=== PATIENT | female | born 1960 | race Caucasian/White ===

== ENCOUNTER 2018-10-04 13:57 | Day surgery (SDC) | payer MEDICAID, OTHER ==
[2018-10-02 18:26] VITALS: BMI 25.6
[~2018-10-04] VITALS: Ht 154.9 cm; Wt 62.3 kg
[2018-10-04] VITALS (25 sets, daily range): BP systolic 133–173; BP diastolic 58–80; PULSE 60–78; RESP 10–17; Ht 154.9 cm; Wt 62.3 kg
[~2018-10-04 13:57] MED LIST: NALOXONE (0.4 MG/ML) INJ ONE; SEVOFLURANE 15 MIN ONE
[2018-10-04] MEDS ORDERED: CEFAZOLIN 2 GM/50 ML (PMX) 50 ML IVPB ONE (14:00)
[2018-10-04] MEDS ORDERED: LACTATED RINGER'S 1,000 ML IV* SCH (14:00)
--- NOTE | 2018-10-04 15:39 | PREAC ---
Date/Time of Note Date/Time of Note DATE: 10/04/18 TIME: 15:39 Anesthesia Eval and Record Evaluation Time Pre-Procedure Interview DATE: 10/04/18 TIME: 15:39 Age 58 Sex female NPO: 8 hrs Preoperative diagnosis Left thumb carpometacarpal arthritis, left carpal tunnel syndrome Planned procedure Left thumb carpometacarpal joint arthroplasty, trapeziectomy, ligament reconstruction using abductor pollicis longus tendon, left carpal tunnel release, endoscopic vs open Past Medical History Past Medical History: Includes (H/O cervical CA, vertigo) Pulm: Asthma Musculoskeletal: Osteoarthritis Surgery & Anesthesia Issues No known issue Meds Anticoagulation: No Beta Man within 24 hr: No Reason Beta Man not given: Pt. not on B-Man Current Medications Lactated Ringer's 1,000 ml @ 0 mls/hr Q0M IV* ; Start 10/04/18 at 14:00 Meds reviewed: Yes Allergies Coded Allergies: No Known Allergies (Verified Allergy, Unknown, 10/02/18) Allergies Reviewed: Yes Labs/Studies Labs Reviewed: Reviewed by anesthesiologist test: N/A Pre-procedure Exam Last vitals Vital Signs Date Temp Pulse Resp B/P (MAP) Pulse Ox O2 O2 Flow FiO2 Time Delivery Rate 10/04/18 97.7 64 16 133/80 100 14:05 (97) Airway: Adequate mouth opening Mallampati: Mallampati I Teeth: Normal Lung: Normal Heart: Normal ASA Physical Status ASA physical status: 2 Emergency: None Planned Anesthetic General/MAC: LMA Planned Pain Management Parenteral pain med Pre-operative Attestations Prior to commencing anesthesia and surgery, the patient was re-evaluated, there was verification of: *The patient's identity *The results of appropriate recent lab work and preoperative vital signs *The above evaluation not changing prior to induction *Anesthetic plan, risk benefits, alternative and complications discussed with patient/family; questions answered; patient/family understands, accepts and wishes to proceed. JOSEPH BACA MD Oct 04, 2018 15:39
--- NOTE | 2018-10-04 15:58 | HPN ---
Date/Time of Note Date/Time of Note DATE: 10/04/18 TIME: 15:57 Interval H&P Admission Note Pt. seen H&P reviewed: No system changes ANDREINA NESS Oct 04, 2018 15:58
[2018-10-04] MEDS ORDERED: PROPOFOL 20 ML ONE (16:07)
[2018-10-04] MEDS ORDERED: LIDOCAINE 2% (SDV) 5 ML INJ ONE (16:07)
[2018-10-04] MEDS ORDERED: ONDANSETRON 4 MG INJ ONE (16:07)
[2018-10-04] MEDS ORDERED: MEPERIDINE 100 MG INJ ONE (16:07)
[2018-10-04] MEDS ORDERED: CEFAZOLIN 1 GM INJ ONE (16:07)
[2018-10-04] MEDS ORDERED: METOCLOPRAMIDE 10 MG INJ ONE (16:07)
[2018-10-04] MEDS ORDERED: MIDAZOLAM 1 MG/ML 2 ML INJ ONE (16:20)
[2018-10-04] MEDS ORDERED: BUPIVACAINE 0.5% (SDV) 30 ML INJ ONE (16:21)
[2018-10-04] MEDS ORDERED: LIDOCAINE 1% (MPF) 30 ML INJ ONE (16:21)
[2018-10-04] MEDS ORDERED: ROPIVACAINE 0.5 % 30 ML VIAL ONE (17:35)
--- NOTE | 2018-10-04 17:53 | OPPN ---
Date/Time of Note Date/Time of Note DATE: 10/04/18 TIME: 17:52 Operative Report Preoperative Diagnosis left thumb CMC osteoarthritis left carpal tunnel syndrome Postoperative Diagnosis left thumb CMC osteoarthritis left carpal tunnel syndrome Operation/Procedure Performed left thumb CMC arthroplasty ligament reconstruction with suspensionplasty left wrist first dorsal compartment release left carpal tunnel release, open Surgeon see signature line household assistant none Anesthesia: general Estimated blood loss: 0 - 10 ml's Transfusion Required none Specimen left thumb trapezium Grafts/Implants none Complications none ANDREINA NESS Oct 04, 2018 17:53
[2018-10-04] MEDS ORDERED: FENTAnyl 50 MCG/ML VIAL ONE (18:37)
[2018-10-04] MEDS: FENTAnyl 50 MCG/ML VIAL IV PRN ×2 (18:57→19:37)
[2018-10-04] MEDS ORDERED: FENTAnyl 50 MCG/ML VIAL IV PRN ×5 (19:00)
[2018-10-04] MEDS ORDERED: MEPERIDINE 25 MG INJ IV PRN (19:00)
[2018-10-04] MEDS ORDERED: PROCHLORPERAZINE 10 MG INJ IV PRN (19:00)
[2018-10-04] MEDS ORDERED: DIPHENHYDRAMINE 50 MG INJ IV PRN (19:00)
[2018-10-04] MEDS ORDERED: hydrALAzine 20 MG INJ IV PRN ×2 (19:00)
[2018-10-04] MEDS ORDERED: EPHEDrine SULFATE 50 MG/5 ML SYG IV PRN (19:00)
[2018-10-04] MEDS ORDERED: MIDAZOLAM 1 MG/ML 2 ML INJ IV PRN (19:00)
[2018-10-04] MEDS ORDERED: METOCLOPRAMIDE 10 MG INJ IV PRN (19:00)
[2018-10-04] MEDS ORDERED: HYDROmorphONE 1 MG/5 ML IV SYRINGE IV PRN ×3 (19:00)
[2018-10-04] MEDS ORDERED: OXYCODONE/ACETAMINOPHEN (5/325) TAB PO PRN ×2 (19:00)
[2018-10-04] MEDS ORDERED: LABETALOL HCL 20MG INJ IV PRN (19:00)
[2018-10-04] MEDS ORDERED: ONDANSETRON 4 MG INJ IV PRN ×2 (19:00)
--- NOTE | 2018-10-04 19:27 | PAC ---
Date/Time of Note Date/Time of Note DATE: 10/04/18 TIME: 19:26 Post-Anesthesia Notes Post-Anesthesia Note Last documented vital signs Vital Signs Date Temp Pulse Resp B/P (MAP) Pulse Ox O2 O2 Flow FiO2 Time Delivery Rate 10/04/18 62 13 155/64 96 Room Air 18:51 (94) 10/04/18 8.0 18:26 10/04/18 98.5 18:11 Activity: WNL Respiratory function: WNL Cardiovascular function: WNL Mental status: Baseline Pain reasonably controlled: Yes Hydration appropriate: Yes Nausea/Vomiting absent: Yes Comments BT: 98.6 JOSEPH BACA MD Oct 04, 2018 19:27
--- NOTE | 2018-10-04 20:55 | OPR ---
DATE OF OPERATION: 10/04/2018 SURGEON: Harvinder Chamorro MD ANESTHESIA: General. PREOPERATIVE DIAGNOSES: 1. Left thumb carpometacarpal joint osteoarthritis. 2. Left carpal tunnel syndrome. POSTOPERATIVE DIAGNOSES: 1. Left thumb carpometacarpal joint osteoarthritis. 2. Left carpal tunnel syndrome. PROCEDURE: 1. Left thumb carpometacarpal joint arthroplasty with excision of trapezium. 2. Left thumb carpometacarpal joint ligament reconstruction and suspension plasty using the abductor pollicis longus tendon. 3. Left wrist first dorsal compartment release. 4. Left carpal tunnel release, open. OPERATIVE FINDINGS: Left thumb carpometacarpal joint, severe osteoarthritis with osteophyte formatio n, pressure within the left carpal tunnel. INDICATION FOR PROCEDURE: A 58-year-old female with longstanding left thumb CMC osteoarthritis who f leonor conservative measures and elected to proceed with surgical intervention, understanding the risk s and benefits. DESCRIPTION OF PROCEDURE: The patient was seen in the preoperative area and all further questions we re answered. Again, she gave informed consent understanding risks and benefits. She was taken to op erative suite and placed in supine position. She was placed under general anesthesia and 2 grams of Ancef IV given. Tourniquet placed in the left upper extremity and left upper extremity was prepped w ith ChloraPrep stick and draped in usual sterile fashion. Esmarch bandage was used to exsanguinate t he extremity and tourniquet inflated to 250 mmHg. Attention was first turned to the carpal tunnel an d a 2 cm incision at the base of the palm was utilized with sharp dissection carried down through ski n and subcutaneous tissue. The palmar aponeurosis was incised along its ulnar border and retractors were deepened. The transverse carpal ligament was divided along its ulnar border approximately 3 mm radial to the hook of the hamate. Retraction was placed proximally and distally and the proximal and distal extent of the transverse carpal ligament were divided under direct visualization. Wound was copiously irrigated and skin closed with 4-0 nylon. Attention was turned to the thumb CMC joint and a longitudinal incision over the thumb CMC joint was utilized with sharp dissection carried down [place] [facility] [place] and subcutaneous tissue. The dorsal branch of the radial artery was identified, dissected a way and protected. The dorsal capsule over the thumb CMC joint was visualized and was incised longit udinally. Full thickness capsular flaps were elevated, radially and ulnarly around the trapezium. T he trapezium was excised completely. The FCR tendon was visualized deep within the wound and after c omplete excision of the trapezium, attention was then turned to the ligament reconstruction and suspe nsion plasty. A large tendon slip of the abductor pollicis longus tendon was identified at the inser tion at the base of the thumb metacarpal. The tendon was dissected out proximally and I released the left wrist first dorsal compartment along its dorsal border to its most proximal extent. After rele ase of the first dorsal compartment, I made a separate incision proximally in the forearm at the musc ulotendinous junction of the APL tendon. The tendon slip that was identified distally was then trans ected proximally was brought out through the distal wound. This was brought deep to the FCR tendon a nd gentle traction was placed in the thumb as well as the APL tendon. 3-0 Ethibond suture was used t o achieve the suspension plasty of the APL and FCR tendons. After multiple sutures were used to secu re the reconstruction, the remaining tendon was placed into a ball and was sutured together and place d into the defect site. The wound was copiously irrigated. Capsular layer closed with 3-0 Ethibond and skin closed with 4-0 nylon. The thumb was quite stable. Xeroform placed over the wounds followe d by sterile gauze, Webril, and a short arm thumb spica splint. Tourniquet deflated after 56 minutes . The patient was awakened from anesthesia. She was taken to postoperative suite in stable conditio n, tolerated procedure well without complication. SPECIMENS: Left thumb trapezium. ESTIMATED BLOOD LOSS: 5 mL. COUNTS: Sponge, instrument, needle counts correct. TOURNIQUET TIME: 56 minutes. CONDITION ON DISCHARGE: Stable. The patient was given a nonrefillable 5-day prescription for pain medication for surgery today. Dictated By: HARVINDER MARIN/GEETA Conf#: [id number] DID#: [id number]
== END 2018-10-04 20:16 | disposition home or self-care (01) ==
LOC: SDS 13:57
PROVIDERS: ATTEND Orthopaedic Surgery Hand Surgery
DX: M18.12 Unilateral primary osteoarthritis of first carpometacarpal joint, left hand (principal); G56.02 Carpal tunnel syndrome, left upper limb; J45.909 Unspecified asthma, uncomplicated
CPT/HCPCS: 25447; 64721; 88304; 88311; J0690; J2175; J2250; J2310; J2405; J2765; J2795; J3010; Z7512; Z7610

== ENCOUNTER 2018-10-07 18:22 | Emergency (ER) | payer OTHER ==
[~2018-10-07] VITALS: Ht 154.9 cm; Wt 62.1 kg
[2018-10-07 18:51] VITALS: BP 132/76; PULSE 101; RESP 20; Ht 154.9 cm; Wt 62.1 kg
--- NOTE | 2018-10-07 20:05 | ERD ---
ER Documentation Chief Complaint Chief Complaint pain/swelling right hand, s/p arm surgery 3 days ago HPI 58-year-old female presents status post left wrist surgery 3 days ago. She had reconstruction of ligaments and removal of 1 of the carpals as well as compartment release. Patient complains of pain despite [place]. She feels like the splint is too tight. She denies fevers, redness. ROS All systems reviewed and are negative except as per history of present illness. Allergies Allergies: Coded Allergies: No Known Allergies (Verified Allergy, Unknown, 10/02/18) PMhx/Soc History of Surgery: Yes (tubal ligation, tonsillectomy, adnoidectomy, cervical ca, Lwrist) Anesthesia Reaction: No Hx Neurological Disorder: Yes (vertigo) Hx Respiratory Disorders: Yes (asthma) Hx Cardiac Disorders: No Hx Psychiatric Problems: No Hx Miscellaneous Medical Probl: Yes Hx Alcohol Use: Yes (occasionally) Hx Substance Use: No Hx Tobacco Use: No Physical Exam Vitals Vital Signs Date Temp Pulse Resp B/P (MAP) Pulse Ox O2 O2 Flow FiO2 Time Delivery Rate 10/07/18 99.4 101 20 132/76 98 18:51 (94) Physical Exam Const: No acute distress Head: Atraumatic Eyes: Normal Conjunctiva ENT: Normal External Ears, Nose and Mouth. Neck: Full range of motion. No meningismus. Resp: Clear to auscultation bilaterally Cardio: Regular rate and rhythm, no murmurs Abd: Soft, non tender, non distended. Normal bowel sounds Skin: No petechiae or rashes Back: No midline or flank tenderness Ext: No cyanosis, or edema. Left upper extremity in splint with Lashay and gauze. Cap refill is less than 2 seconds. Left upper extremity neurovascular intact Neur: Awake and alert Psych: Normal Mood and Affect Procedures/MDM Partial dressing removal and readjustment of splint was performed. Patient had immediate relief of pain. Patient continued to have cap refill less than 2 seconds and was neurovascular intact. We will defer complete dressing removal to maintain sterility given improvement in symptoms and no current symptoms to suggest infection or ischemia. Will be discharged home with recommendations for elevation of extremity, and follow-up with her surgeon. She return for fevers, redness, worsening pain, swelling, new worsening symptoms.. Departure Diagnosis: Primary Impression: Post-op pain Condition: Stable Patient Instructions: Post Op Wound Check, Pain Additional Instructions: Keep extremity elevated above heart and above elbow. Recheck for redness, fevers, new worsening symptoms. Follow-up with surgeon as advised. PRIYANKA FIERRO MD Oct 07, 2018 20:05
== END 2018-10-07 20:47 | disposition left against medical advice (07) ==
LOC: FTE 18:22
DX: G89.18 Other acute postprocedural pain (principal); J45.909 Unspecified asthma, uncomplicated; Z85.41 Personal history of malignant neoplasm of cervix uteri
CPT/HCPCS: 99282